=== PATIENT | female | born 1940 | race Caucasian/White ===

== ENCOUNTER → 2016-07-30 09:12 | Outpatient (CLI) | payer MEDICARE ==
[2016-05-16 22:30] VITALS: BMI 24.7
[~2016-07-30 09:12] MED LIST: ALEVE220 MG PO; CRANBERRY; ELIQUIS5 MG PO; FISH OIL 500 MG1 CAP PO; MUCINEX D1 TAB.SR .; MUCINEX D1 TAB.SR . PO; NIASPAN500 MG PO; OSTEO BI-FLEX1 EAC1 PO; PRILOSEC20 MG PO; VALIUM 2 MG TAB2 MG PO; VITAMIN D2000 UNIT PO; ZANTAC150 MG PO
== END | disposition home or self-care (01) ==
LOC: D.RAD 09:12
DX: I27.2 Other secondary pulmonary hypertension (principal)

== ENCOUNTER → 2016-08-23 17:27 | Outpatient (CLI) | payer MEDICARE ==
[2016-05-16 22:30] VITALS: BMI 24.7
[2016-08-23 18:36] LABS: ALBUMIN 4.1 g/dL (3.4-5.0); ANION GAP 15.8 mmol/L (8-16); BILIRUBIN - TOTAL 0.36 mg/dL (0.2-1.3); CALCIUM 9.2 mg/dL (8.5-10.1); CARBON DIOXIDE 26.1 mmol/L (21.0-32.0); CREATININE - SERUM 0.9 mg/dL (0.6-1.3); POTASSIUM - SERUM 3.9 mmol/L (3.5-5.1); PROTEIN - SERUM 7.7 g/dL (6.4-8.2)
== END | disposition home or self-care (01) ==
LOC: D.LABREF 17:27
PROVIDERS: Family Medicine
DX: I26.99 Other pulmonary embolism without acute cor pulmonale (principal)

== ENCOUNTER → 2016-09-20 09:39 | Outpatient (CLI) | payer MEDICARE ==
[2016-05-16 22:30] VITALS: BMI 24.7
[2016-09-20 11:42] LABS: BASOPHILS 0.2 % (0-2); EOSINOPHILS 0.6 % (0-7); HEMOGLOBIN 13.4 g/dL (12-16); IMMATURE GRANULOCYTES 0.1 % (0-5); LYMPHOCYTES 36.5 % (15-50); MCH 30.9 pg (26.0-34.0); MCHC 32.7 g/dL (31.0-37.0); MCV 94.7 fL (80.0-100.0); MEAN PLATELET VOLUME 10.5 fL (7.4-10.4); MONOCYTES 10.1 % (2-11); NEUTROPHILS 52.5 % (40-80); PLATELET COUNT 202 10x3/uL (130-400); RBC 4.33 10x6/uL (4.00-5.40); RDW 12.8 % (11.5-14.5); WBC 8.3 10x3/uL (4.8-10.8)
[2016-09-20 11:55] LABS: ALBUMIN 3.8 g/dL (3.4-5.0); ANION GAP 12.1 mmol/L (8-16); BILIRUBIN - TOTAL 0.34 mg/dL (0.2-1.3); CALCIUM 9.2 mg/dL (8.5-10.1); CARBON DIOXIDE 26.5 mmol/L (21.0-32.0); POTASSIUM - SERUM 3.6 mmol/L (3.5-5.1); PROTEIN - SERUM 7.8 g/dL (6.4-8.2)
[2016-09-20 11:56] LABS: HELICOBACTER PYLORI IGG NEGATIVE (NEGATIVE)
[2016-09-21 10:20] LABS: ACLA - IGG AB 9 GPL U/mL (0-14); ACLA - IGM AB <9 MPL U/mL (0-12)
== END | disposition home or self-care (01) ==
LOC: D.RT 09:39
PROVIDERS: Internal Medicine Pulmonary Disease
DX: E55.9 Vitamin D deficiency, unspecified (principal)

== ENCOUNTER → 2016-10-09 17:13 | Outpatient (CLI) | payer MEDICARE ==
[2016-05-16 22:30] VITALS: BMI 24.7
== END | disposition home or self-care (01) ==
LOC: D.MAMMO 14:00
DX: Z12.31 Encounter for screening mammogram for malignant neoplasm of breast (principal)

== ENCOUNTER 2016-10-23 03:29 | Observation (INO) | payer MEDICARE ==
[~2016-10-23] VITALS: Ht 157.5 cm; Wt 60.0 kg
[2016-10-23 03:40] LABS: BASOPHILS 0.3 % (0-2); EOSINOPHILS 1.1 % (0-7); HEMATOCRIT 39.8 % (36.0-48.0); HEMOGLOBIN 12.7 g/dL (12-16); IMMATURE GRANULOCYTES 0.1 % (0-5); LYMPHOCYTES 47.2 % (15-50); MCH 30.8 pg (26.0-34.0); MCHC 31.9 g/dL (31.0-37.0); MCV 96.4 fL (80.0-100.0); MEAN PLATELET VOLUME 10.3 fL (7.4-10.4); MONOCYTES 9.1 % (2-11); NEUTROPHILS 42.2 % (40-80); PLATELET COUNT 197 10x3/uL (130-400); RBC 4.13 10x6/uL (4.00-5.40); RDW 13.1 % (11.5-14.5); WBC 7.6 10x3/uL (4.8-10.8)
[2016-10-23 04:02] LABS: ALBUMIN 3.4 g/dL (3.4-5.0); ALKALINE PHOSPHATASE 59 U/L (46-116); ALT (SGPT) 22 U/L (10-68); CALC OSMOLALITY 281 mosm/kg (275-300); CALCIUM 9.1 mg/dL (8.5-10.1); CARBON DIOXIDE 26.4 mmol/L (21.0-32.0); CHLORIDE - SERUM 105 mmol/L (98-107); GLUCOSE 105 mg/dL (74-106); POTASSIUM - SERUM 3.8 mmol/L (3.5-5.1); PROTEIN - SERUM 7.1 g/dL (6.4-8.2); SODIUM 140 mmol/L (136-145); UREA NITROGEN 20 mg/dL (7-18); eGFR NON AFRICAN AMERICAN 57 mL/min (90-120)
[2016-10-23 04:14] LABS: CKMB 0.2 U/L (0.0-3.6); CREATINE KINASE 35 UL (21-215); TROPONIN-I < 0.017 ng/mL (0.000-0.060)
[2016-10-23 05:16] VITALS: BP 120/79; Ht 157.5 cm; Wt 60.0 kg
[2016-10-23 08:19] VITALS: BP 136/70
--- NOTE | 2016-10-24 08:15 | DS ---
PATIENT:TAM HOLLAND :42 MEDICAL RECORD: [id number] DISCHARGE SUMMARY ADMISSION DATE: 10/23/16 DISCHARGE DATE: 10/23/16 A 75-year-old female. DATE OF ADMISSION: 10/23/2016 DATE OF DISCHARGE: ____ The patient was admitted early this morning from the Emergency Room. ADMISSION DIAGNOSES: Chest pain, elevated blood pressure. DISCHARGE DIAGNOSES: Chest pain, elevated blood pressure completely resolved. HOSPITAL COURSE: The patient is anxious to go home. Discharged home in stable and improved condition and will follow up as an outpatient to complete her cardiac workup. Return to the ER with any resumption or worsening symptoms. OBJECTIVE: VITAL SIGNS ON DISCHARGE: Temperature 98.1, blood pressure is 120/79, heart rate 67, respirations 16, O2 sats 97% on room air. LABORATORY DATA: Cardiac enzymes negative. DISCHARGE MEDICATIONS: Continue home medications. DISCHARGE INSTRUCTIONS: Follow up in the clinic as scheduled and as needed. 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 [address] [id number]
--- NOTE | 2016-10-24 08:15 | HP ---
PATIENT: TAM HOLLAND MEDICAL RECORD: [id number] ACCOUNT: [id number] LOCATION:[address] : 42 ADMISSION DATE: 10/23/16 HISTORY AND PHYSICAL EXAMINATION HISTORY OF PRESENT ILLNESS: A 75-year-old female presented to the Emergency Room late last night with chest pain symptoms, elevated blood pressure, had a normal echo in April of last year. She is asymptomatic this a.m. She received 1 nitroglycerin 1 time. 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 She is anxious to go home. She has a nuclear stress test scheduled for next week and again is asymptomatic. PAST MEDICAL HISTORY: Significant for GERD, degenerative disc disease, hyperlipidemia and insomnia. CURRENT MEDICATIONS: Listed as diazepam for insomnia, Estrace vaginal cream, fish oil, omeprazole, niacin, Zantac. ALLERGIES: CODEINE. FAMILY HISTORY: Significant for mother with thyroid disease. Grandmother with diabetes. Paternal grandfather with lung cancer. Mother also had a history of coagulopathy and ovarian tumor. Uncle had TB. SOCIAL HISTORY: She denies any tobacco use, denies alcohol. No illicit drug use. REVIEW OF SYSTEMS: GENERAL: No acute change in weight or appetite. HEENT: No cephalgia, visual changes, tinnitus, epistaxis or dysphagia. CARDIOVASCULAR: Onset of chest pain last night, completely resolved. Anxious to go home. Asymptomatic this a.m. PULMONARY: Denies hemoptysis, denies night sweats, denies shortness of breath. GASTROINTESTINAL: Denies hematemesis, hematochezia or melena. GENITOURINARY: Denies dysuria. MUSCULOSKELETAL: No acute changes. ENDOCRINE: Denies polyuria, polydipsia, or polyphagia. PHYSICAL EXAMINATION: VITAL SIGNS: Temp 98.1, blood pressure is 120/79, heart rate 67, respirations 16, O2 sats 97% on room air. GENERAL: Alert, oriented, no acute distress. HEENT: Normocephalic, atraumatic. Eyes: Pupils equal, round, reactive to light and accommodation. Extraocular muscles intact. Conjunctiva was not injected. Ears: Canals patent, TMs are intact. Nose: Nares patent without drainage. Throat: No erythema, no exudates. NECK: Supple. No lymphadenopathy, no JVD. HEART: Regular rate and rhythm. No S3, S4, no rub. LUNGS: Clear to auscultation bilaterally. Breathing is nonlabored. ABDOMEN: Soft, nontender. Bowel sounds all 4 quadrants. EXTREMITIES: Present times 4, no edema. NEUROLOGIC: Intact. SKIN: Warm, dry. No rash. LABORATORY DATA: Telemetry shows sinus rhythm with a rate of 74. EKG on HISTORY AND PHYSICAL [id number] TAM HOLLAND admission showed sinus rhythm, rate of 69, nonspecific ST changes. Cardiac enzymes negative. ASSESSMENT AND PLAN: Chest pain, complete resolution, asymptomatic. The patient was monitored overnight. She is anxious to go home. She is discharged to home. We will follow up with her core java engineer to complete workup as an outpatient. The patient is adamant about leaving and is asymptomatic at this time. Advised to return to the ER with any resumption or worsening symptoms. The patient agrees with discharge. TRANSINT:[id number] Voice Confirmation ID: [id number] DOCUMENT ID: [id number] ANTOLIN GARZA DO at 0815 CC: [id number] DICTATION DATE: 10/23/16 0758 CONTACT LENS POLISHER: 10/23/16 0848 DIS IN 10/23/16 [facility] [address] [place] [address]
== END 2016-10-23 10:30 | disposition home or self-care (01) ==
LOC: D.ER 03:29 → D.M2 04:48 → OBSVTIME 04:48 → D.M2 10:30
PROVIDERS: Emergency Medicine; ADMIT Family Medicine
DX: R07.9 Chest pain, unspecified (principal); K21.9 Gastro-esophageal reflux disease without esophagitis; I10 Essential (primary) hypertension; E78.5 Hyperlipidemia, unspecified

== ENCOUNTER → 2016-11-29 17:33 | Outpatient (CLI) | payer MEDICARE ==
[2016-10-23 05:16] VITALS: BMI 24.2
== END | disposition home or self-care (01) ==
LOC: D.LABREF 17:33
DX: D68.9 Coagulation defect, unspecified (principal)

== ENCOUNTER → 2016-12-04 10:47 | Outpatient (CLI) | payer MEDICARE ==
[2016-10-23 05:16] VITALS: BMI 24.2
[2016-12-06 13:15] LABS: ACLA - IGG AB <9 GPL U/mL (0-14); ACLA - IGM AB <9 MPL U/mL (0-12)
== END | disposition home or self-care (01) ==
LOC: D.LABREF 10:47
PROVIDERS: Family Medicine
DX: D68.9 Coagulation defect, unspecified (principal)

== ENCOUNTER → 2016-12-14 08:31 | Outpatient (CLI) | payer MEDICARE ==
[2016-10-23 05:16] VITALS: BMI 24.2
[2016-12-14 09:51] LABS: CREATININE - SERUM 0.8 mg/dL (0.6-1.3)
== END | disposition home or self-care (01) ==
LOC: D.LAB 08:31 → D.CT 09:30
PROVIDERS: Internal Medicine Pulmonary Disease
DX: I26.99 Other pulmonary embolism without acute cor pulmonale (principal)

== ENCOUNTER → 2017-10-10 17:27 | Outpatient (CLI) | payer MEDICARE ==
[2016-10-23 05:16] VITALS: BMI 24.2
== END | disposition home or self-care (01) ==
LOC: D.MAMMO 11:15
DX: N64.89 Other specified disorders of breast (principal)

== ENCOUNTER → 2018-01-03 07:31 | Outpatient (CLI) | payer MEDICARE ==
[2016-10-23 05:16] VITALS: BMI 24.2
== END | disposition home or self-care (01) ==
LOC: D.RAD 07:31
DX: K21.9 Gastro-esophageal reflux disease without esophagitis (principal)

== ENCOUNTER → 2019-07-29 13:32 | Outpatient (CLI) | payer MEDICARE ==
[2016-10-23 05:16] VITALS: BMI 24.2
== END | disposition home or self-care (01) ==
LOC: D.RT 13:32
PROVIDERS: ATTEND Internal Medicine Pulmonary Disease
DX: R06.00 Dyspnea, unspecified (principal); J98.11 Atelectasis

== ENCOUNTER → 2020-03-04 09:36 | Outpatient (CLI) | payer MEDICARE ==
[2016-10-23 05:16] VITALS: BMI 24.2
== END | disposition home or self-care (01) ==
LOC: D.US 09:36
PROVIDERS: ATTEND Internal Medicine Medical Oncology
DX: I26.99 Other pulmonary embolism without acute cor pulmonale (principal); R60.0 Localized edema

== ENCOUNTER 2020-08-08 21:00 | Emergency (ER) | payer MEDICARE ==
[2020-08-08 21:12] VITALS: BP 147/78; Ht 157.5 cm
[2020-08-08 22:33] LABS: BASOPHILS 0.1 % (0-2); EOSINOPHILS 0.2 % (0-7); HEMATOCRIT 35.7 % (36.0-48.0); HEMOGLOBIN 11.5 g/dL (12-16); IMMATURE GRANULOCYTES 0.3 % (0-5); LYMPHOCYTES 11.7 % (15-50); MCH 30.1 pg (26.0-34.0); MCHC 32.2 g/dL (31.0-37.0); MCV 93.5 fL (80.0-100.0); MEAN PLATELET VOLUME 9.3 fL (7.4-10.4); MONOCYTES 8.7 % (2-11); NEUTROPHIL ABS# 10.74 10x3/uL (1.56-6.13); RBC 3.82 10x6/uL (4.00-5.40); RDW 13.4 % (11.5-14.5); WBC 13.6 10x3/uL (4.8-10.8)
[2020-08-08 22:34] LABS: PLATELET COUNT 496 10x3/uL (130-400)
[2020-08-08 22:37] LABS: APTT 32.1 SECONDS (22.8-39.4); INR 1.3 (0.85-1.17)
[2020-08-08 22:39] LABS: UDS - AMPHET NEGATIVE QUAL (NEGATIVE); UDS - BARB NEGATIVE QUAL (NEGATIVE); UDS - BENZO POSITIVE QUAL (NEGATIVE); UDS - COCAINE NEGATIVE QUAL (NEGATIVE); UDS - OPIATE NEGATIVE QUAL (NEGATIVE); UDS - PCP NEGATIVE QUAL (NEGATIVE); UDS - THC NEGATIVE QUAL (NEGATIVE)
[2020-08-08 22:43] LABS: CALC OSMOLALITY 275 mosm/kg (275-300); CALCIUM 8.5 mg/dL (8.5-10.1); CARBON DIOXIDE 26.7 mmol/L (21.0-32.0); CHLORIDE - SERUM 103 mmol/L (98-107); CREATININE - SERUM 0.5 mg/dL (0.6-1.3); GLUCOSE 106 mg/dL (74-106); POTASSIUM - SERUM 3.4 mmol/L (3.5-5.1); SODIUM 138 mmol/L (136-145); UREA NITROGEN 12 mg/dL (7-18); eGFR NON AFRICAN AMERICAN > 90 mL/min (90-120)
[2020-08-08 22:54] LABS: BILIRUBIN NEGATIVE (NEGATIVE); KETONE LARGE mg/dL (NEGATIVE); NITRITE NEGATIVE (NEGATIVE); UROBILINOGEN NORMAL mg/dL (< 2); WHITE CELLS - URINE 25-50 HPF (0-4)
[2020-08-08 22:55] LABS: BACTERIA MODERATE HPF (NONE SEEN); SQUAMOUS EPITHELIAL 0-5 HPF (0-4)
[2020-08-08 22:55] LABS: ALKALINE PHOSPHATASE 88 U/L (30-120); ALT (SGPT) 17 U/L (10-68); BILIRUBIN - TOTAL 0.45 mg/dL (0.2-1.3); CREATINE KINASE 24 UL (21-215); LIPASE 71 U/L (73-393); MAGNESIUM - SERUM 1.5 mg/dL (1.8-2.4); PRO BNP 84 pg/mL (0-450); PROTEIN - SERUM 6.4 g/dL (6.4-8.2); THYROID STIMULATING HORMONE 1.12 uIU/mL (0.36-3.74); TROPONIN-I < 0.017 ng/mL (0.000-0.060)
[2020-08-08] MEDS ORDERED: OMNICEF300 MG PO (23:09)
== END 2020-08-09 01:31 | disposition home or self-care (01) ==
LOC: D.ER 21:00
PROVIDERS: Family Medicine
DX: R41.82 Altered mental status, unspecified (principal); N39.0 Urinary tract infection, site not specified

== ENCOUNTER 2020-11-21 16:00 | Outpatient (CLI) | payer MEDICARE ==
[2020-08-08 21:12] VITALS: BMI 24.2
[~2020-11-21 16:00] MED LIST changes: +OMNICEF300 MG PO
== END 2020-11-21 23:59 | disposition home or self-care (01) ==
LOC: D.MAMMO 16:00
PROVIDERS: ATTEND Family Medicine
DX: Z12.31 Encounter for screening mammogram for malignant neoplasm of breast (principal)